=== PATIENT | male | born 2000 | race Caucasian/White ===

== ENCOUNTER → 2020-05-25 | Outpatient (CLI) | payer MEDICAID ==
--- NOTE | 2020-05-25 16:38 | XR ---
Thoracic spine HISTORY: R 22.2, palpable mass at C7-T1 level 3 views of the thoracic spine There is a mild S-shaped thoracic scoliosis. Thoracic vertebral bodies show preserved height and bone mineralization. No paraspinal mass. Disc spaces are maintained. Palpable mass may correspond to prom inent spinous process at the lower cervical and upper thoracic spine. IMPRESSION: Mild spinal curvature. Consider MRI or CT with overlying marker as indicated.
--- NOTE | 2020-05-25 16:39 | XR ---
Cervical spine HISTORY: R 22.2 correlation thoracic spine same date Prominent spinous process noted at C7, T1. Cervical vertebral bodies show preserved height, alignment , and bone mineralization. Disc spaces are normal. Question some overlying artifact at the lower cerv ical or upper thoracic spine seen on the lateral view. IMPRESSION: No evident mass. Correlate for spinous process at patients palpable abnormality, consider alternate imaging as indicated.
== END | disposition home or self-care (01) ==
LOC: RAD 15:29
PROVIDERS: ATTEND Internal Medicine
DX: R22.2 Localized swelling, mass and lump, trunk (principal)
CPT/HCPCS: 72040; 72070

== ENCOUNTER → 2020-06-05 | Outpatient (CLI) | payer MEDICAID ==
--- NOTE | 2020-06-05 14:37 | CT ---
EXAMINATION TYPE: CT cervical spine wo con DATE OF EXAM: 06/05/2020 COMPARISON: Cervical spine and thoracic spine x-rays 11 days ago HISTORY: Mass on posterior cspine/tspine. Abnormal x-ray. CT DLP: 467 mGycm. Automated Exposure Control for Dose Reduction was Utilized. TECHNIQUE: CT scan of the cervical spine is obtained without contrast, axial images are obtained, sa gittal and coronal reformatted images are also reviewed. FINDINGS: Cervical spine is visualized in its entirety from C1 through upper thoracic levels, demonst rates satisfactory alignment without evidence of acute fracture or dislocation. Prevertebral soft ti ssue appears within normal limits. The C1-C2 articulation is within normal limits on the coronal aidan ges. Vertebral body heights and disc space heights are maintained. Spinal canal is preserved. Review of axial images shows no significant spinal canal stenosis or neural foraminal narrowing at an y cervical level. Thyroid gland is felt within normal limits. Visualized lung apices are clear. No nesbitt spicious focal lytic or sclerotic or expansile osseous lesion. There is a moderate focal subcutaneous edema and fat stranding in the posterior soft tissue metallic BB axial image 68 corresponds to palpa ble area roughly C6-C7 disc space level. No well-formed fluid collection is seen. IMPRESSION: There is no suspicious osseous abnormality. Corresponding to palpable abnormality there is moderate ill-defined fluid and fat stranding posterior subcutaneous fat of the lower cervical spin e worrisome for infectious or inflammatory process. Suspect acute cellulitis or soft tissue infection . Correlate clinically.
== END | disposition home or self-care (01) ==
LOC: RADCTMAIN 14:03
PROVIDERS: ATTEND Internal Medicine
DX: M53.82 Other specified dorsopathies, cervical region (principal)
CPT/HCPCS: 72125

== ENCOUNTER → 2021-11-28 | Outpatient (CLI) | payer MEDICAID ==
--- NOTE | 2021-11-28 14:57 | XR ---
EXAMINATION TYPE: XR forearm RT DATE OF EXAM: 11/28/2021 COMPARISON: None HISTORY: Swelling of right hand TECHNIQUE: 2 view right forearm FINDINGS: No acute fracture or dislocation is evident. Soft tissues appear normal. Follow up exams can be performed 7-10 days from acute trauma for pain. IMPRESSION: 1. No acute osseous abnormality right forearm
--- NOTE | 2021-11-28 14:58 | XR ---
EXAMINATION TYPE: XR hand complete RT DATE OF EXAM: 11/28/2021 COMPARISON: None HISTORY: Pain swelling TECHNIQUE: 3 view right hand FINDINGS: No acute fracture or dislocation. Joint spaces are preserved. Soft tissues appear normal. Follow up exams can be performed 7-10 days from acute trauma for continued pain. IMPRESSION: 1. No acute osseous abnormality right hand
== END | disposition home or self-care (01) ==
LOC: RADXRMAIN 11:23
PROVIDERS: ATTEND Internal Medicine
DX: M79.89 Other specified soft tissue disorders (principal); M79.641 Pain in right hand

== ENCOUNTER 2023-06-10 11:40 | Day surgery (SDC) | payer MEDICAID ==
[~2023-06-10 11:40] MED LIST: DEXAMETHASONE SOD PHOSPHATE 4 MG/ML 1 ML VIAL IV ONE; HYDROmorphone 0.5 MG/0.5 ML SYRINGE IVP PRN; LACTATED RINGERS 1,000 ML IV SCH; ONDANSETRON 4 MG/2 ML VIAL IVP ONE; Pre Op ABX Message 1 EACH MISC MISCELLANE ONE
[2023-06-10 12:27] VITALS: TEMP 98.3
[2023-06-10] MEDS ORDERED: CLINDAMYCIN 600 MG in DEXTROSE 5% IN WATER 50 ML IVPB STA ×2 (12:41)
[2023-06-10] MEDS ORDERED: fentaNYL (PF) 50 MCG/ML 2 ML AMP ONE (13:30)
[2023-06-10] MEDS ORDERED: KETAMINE HCL IN 0.9 % NACL 50 MG/5 ML SYRINGE ONE (13:30)
[2023-06-10] MEDS ORDERED: MIDAZOLAM 2 MG/2 ML VIAL ONE (13:30)
[2023-06-10] MEDS ORDERED: GLYCOPYRROLATE 0.2 MG/ML 2 ML VIAL ONE (13:30)
[2023-06-10] MEDS ORDERED: PROPOFOL 10 MG/ML 20 ML VIAL IV ONE (13:30)
[2023-06-10] MEDS ORDERED: BUPIVACAINE (PF) 0.25% 30 ML VIAL SQ ONE (13:50)
--- NOTE | 2023-06-10 14:44 | P.OP ---
Date of Procedure: 06/10/23 Preoperative Diagnosis: Amira deformity left foot Postoperative Diagnosis: Same Procedure(s) Performed: Resection of Amira's deformity left heel Excision of bursal sac posterior aspect left heel Anesthesia: MAC Surgeon: Garcia Tinoco Operative Findings: Unremarkable Description of Procedure: On the date of surgery the patient was taken to the operating room in good condition placed on the operating table in a prone position IV had been started and adequate IV anesthetic agents were utilized anesthesia was then further supplemented with 12 mL of 0.25% plain Marcaine given in an infiltrative block around the Amira's formerly the posterior aspect of the patient's left heel. Agents left foot and ankle were then prepped and draped in the usual aseptic manner. Her heavy web roll padding an ankle tourniquet was placed above the malleoli of the patient's left ankle and utilizing an Esmarch bandage the patient's left foot and ankle were elevated and exsanguinated of blood and after approximately 1 minutes. A time the ankle tourniquet was inflated to 250 mmHg At this time attention was directed to the lateral side of the patient's left heel where as posterior as possible maintaining on the lateral side 6 cm tear incision was made the incision was deepened via sharp dissection down through the level of the subcutaneous tissue layers all neurovascular structures encountered were identified isolated and were retracted and any bleeding vessels were clamped and electrocauterized dissection was then carried deep down to the level of the periosteal ring of the posterior lateral side of the calcaneus adjacent to the Achilles tendon an incision was made posing the hypertrophied bone and periosteal structures were underscored and retracted from the underlying bone the Achilles tendon was reflected medially utilizing combination of osteotomes as well as an oscillating bone saw the hyperostosis present on the posterior lateral side of the patient's left heel was resected flush and removed in total from the surgical site throughout the surgical procedure copious amounts sterile saline solution was used to irrigate the surgical site, just posterior to the Achilles tendon a bursal sac was noted and dissected and removed in total from the surgical site. Periosteal structures were then coaptated and maintained utilizing 3-0 Vicryl simple interrupted suture and skin was closed utilizing 4-0 nylon simple interrupted suture the surgical site was covered with Adaptic Kerlix fluffs four-inch conformer and 4 inch Coban and the ankle tourniquet to the patient's left ankle was deflated adequate hemostatic return was seen in all digits the patient's left foot tolerated the surgery and anesthesia well was taken recovery room in good postoperative condition.
[2023-06-10 14:58] VITALS: RESP 16
[2023-06-10 15:46] VITALS: BP 123/78; PULSE 64
== END 2023-06-10 15:49 | disposition home or self-care (01) ==
LOC: OR 11:40
PROVIDERS: ATTEND Podiatrist Foot & Ankle Surgery
DX: M94.8X7 Other specified disorders of cartilage, ankle and foot (principal); I25.10 Atherosclerotic heart disease of native coronary artery without angina pectoris; F12.90 Cannabis use, unspecified, uncomplicated; Z88.0 Allergy status to penicillin
CPT/HCPCS: 28120; 28118; J2250; J1100; J2405; J3010; J2704; J0736; J0665